=== PATIENT | male | born 1990 | race Two or more races ===

== ENCOUNTER 2024-03-20 18:18 | Emergency (ER) | payer MEDICAID ==
[~2024-03-20] VITALS: Ht 162.6 cm; Wt 74.8 kg
[2024-03-20] MEDS ORDERED: KETOROLAC TROMETHAMINE 30 MG INJ ONE (19:00)
[2024-03-20] MEDS: KETOROLAC TROMETHAMINE 30 MG INJ IM ONE (19:04)
[2024-03-20 19:13] LABS: BASOPHILS # (AUTO) 0.1 K/UL (0.0-0.2); BASOPHILS % (AUTO) 0.8 % (0.0-2.0); EOSINOPHILS # (AUTO) 0.1 K/uL (0.0-0.7); EOSINOPHILS % (AUTO) 1.9 % (0.0-7.0); HEMOGLOBIN 14.5 g/dL (12.5-16.3); LYMPHOCYTES # (AUTO) 1.4 K/uL (0.8-4.8); LYMPHOCYTES % (AUTO) 17.9 % (20.5-51.5); MEAN CORPUSCULAR HGB CONC 35 g/dL (32.5-36.3); MEAN CORPUSCULAR VOLUME 89.7 fL (73.0-96.2); MONOCYTES # (AUTO) 0.8 K/uL (0.1-1.30); MONOCYTES % (AUTO) 10.4 % (0.0-11.0); NEUTROPHILS # (AUTO) 5.3 K/uL (1.8-8.9); PLATELET COUNT (AUTO) 269 K/uL (152-348); RED BLOOD CELL COUNT(AUTO) 4.68 MIL/uL (4.06-5.63); RED CELL DISTRIBUTION WIDTH 13.4 % (12.1-16.2); WHITE BLOOD COUNT (AUTO) 7.7 K/uL (3.6-10.2)
[2024-03-20 19:39] LABS: ETHANOL < 3 MG/DL (0-10)
[2024-03-20 19:49] LABS: DIFFERENTIAL COMMENT 1
[2024-03-20] MEDS ORDERED: PANTOPRAZOLE SODIUM 40 MG TABLET.DR PO ONE (20:00)
[2024-03-20] MEDS ORDERED: OMEP20TA20 PO (20:02)
[2024-03-20 20:19] VITALS: BP 118/72; TEMP 98; O2SAT 100
[2024-03-20 21:10] LABS: ALANINE AMINOTRANSFERASE 72 U/L (16-63); ALBUMIN 3.7 g/dL (3.4-5.0); ALKALINE PHOSPHATASE 74 U/L (50-136); ASPARTATE AMINOTRANSFERASE 41 U/L (15-37); BILIRUBIN,TOTAL 0.4 mg/dL (0.2-1.0); CALCIUM 8.3 mg/dL (8.5-10.1); CARBON DIOXIDE 28 mmol/L (21-32); CHLORIDE 105 mmol/L (98-107); CREATININE 1.3 mg/dL (0.6-1.3); GLUCOSE 102 mg/dL (74-106); LIPASE 33 U/L (16-77); POTASSIUM 4.2 mmol/L (3.5-5.1); SODIUM SERUM 143 mmol/L (136-145); TOTAL PROTEIN, SERUM 7.1 g/dL (6.4-8.2); UREA NITROGEN, BLOOD 15 mg/dL (7-18)
== END 2024-03-20 20:20 | disposition home or self-care (01) ==
LOC: ER 18:18
DX: K29.70 Gastritis, unspecified, without bleeding (principal); Z79.899 Other long term (current) drug therapy; Z87.19 Personal history of other diseases of the digestive system
CPT/HCPCS: 80053; 83690; 85025; 36415; 74176; 99285; 96372; 80320; J1885; A4606; A4663; G0480